=== PATIENT | male | born 1980 | race Caucasian/White ===

== ENCOUNTER → 2020-08-12 | Outpatient (CLI) | payer OTHER ==
[~2020-08-12] MED LIST: HYDROCODON-ACE1 EAC4 PO
[2020-08-12 14:23] LABS: HEMOGLOBIN 15.8 gm/dl (14.0-17.5); RED BLOOD COUNT 4.8 M/UL (4.20-5.50); WHITE BLOOD COUNT 10.5 K/UL (4.5-11.0)
[2020-08-12 14:48] LABS: BUN/CREATININE RATIO 19 (0-10)
[2020-08-13 09:14] LABS: THYROXINE (T4) 8.3 ug/dL (4.5-12.0)
== END ==
LOC: LAB 13:44
PROVIDERS: Nurse Practitioner Family
DX: Z13.220 Encounter for screening for lipoid disorders (principal); I10 Essential (primary) hypertension; F41.9 Anxiety disorder, unspecified; E78.5 Hyperlipidemia, unspecified; F32.9 Major depressive disorder, single episode, unspecified
CPT/HCPCS: 36415; 80053; 80061; 84436; 84443; 84480; 85025